=== PATIENT | female | born 1940 ===

== ENCOUNTER 2017-12-11 06:21 | Day surgery (SDC) | payer OTHER ==
[~2017-12-11 06:21] MED LIST: COZAAR50 MG PO; EFFEXOR XR150 MG PO
[2017-12-11] MEDS ORDERED: KEFLEX250 MG PO (11:29)
[2017-12-11] MEDS ORDERED: ULTRACET PO (11:30)
== END 2017-12-11 13:35 | disposition home or self-care (01) ==
LOC: CIR.AMB 06:21
DX: N39.41 Urge incontinence (principal); N32.81 Overactive bladder; R35.0 Frequency of micturition
CPT/HCPCS: 64581; C1778

== ENCOUNTER 2017-12-18 06:58 | Day surgery (SDC) | payer OTHER ==
[~2017-12-18 06:58] MED LIST changes: +KEFLEX250 MG PO; +ULTRACET PO
== END 2017-12-18 13:02 | disposition home or self-care (01) ==
LOC: CIR.AMB 06:58
DX: N39.46 Mixed incontinence (principal); N32.81 Overactive bladder
CPT/HCPCS: 64590; C1767